=== PATIENT | male | born 1990 | race African-American/Black ===

== ENCOUNTER 2023-09-03 11:33 | Emergency (ER) | payer SELFPAY ==
[~2023-09-03] VITALS: Ht 180.3 cm; Wt 95.5 kg
[2023-09-03 13:14] VITALS: BP 135/89; PULSE 102; RESP 20; TEMP 98.8; O2SAT 100
[2023-09-03] MEDS ORDERED: IBUP-1456 PO (13:18)
[2023-09-03] MEDS ORDERED: CEPH500C PO (13:18)
[2023-09-03] MEDS ORDERED: HYDR-4798 PO (13:24)
[2023-09-03] MEDS ORDERED: HYDROcodone-ACET 5/325MG TAB PO ONE (13:30)
== END 2023-09-03 13:27 | disposition home or self-care (01) ==
LOC: ER 11:33
DX: S22.42XA Multiple fractures of ribs, left side, initial encounter for closed fracture (principal); S50.312A Abrasion of left elbow, initial encounter; Z79.899 Other long term (current) drug therapy; W18.39XA Other fall on same level, initial encounter; Y93.89 Activity, other specified; Y92.89 Other specified places as the place of occurrence of the external cause; Y99.8 Other external cause status
CPT/HCPCS: 71101